=== PATIENT | male | born 1975 | race Caucasian/White ===

== ENCOUNTER 2018-02-02 14:01 | Emergency (ER) | payer SELFPAY ==
[~2018-02-02] VITALS: Ht 160 cm; Wt 78.0 kg
[2018-02-02] MEDS ORDERED: ALBUTEROL (0.083%) 2.5MG/3ML NEB HHN STA (15:09)
[2018-02-02] MEDS ORDERED: IPRATROPIUM BROMIDE (0.02%) 0.5MG/2.5ML NEB HHN STA (15:09)
[2018-02-02 16:51] VITALS: BP 116/74
== END 2018-02-02 16:53 | disposition home or self-care (01) ==
LOC: ER 14:01
DX: Z11.1 Encounter for screening for respiratory tuberculosis (principal); J45.909 Unspecified asthma, uncomplicated; I10 Essential (primary) hypertension; F17.200 Nicotine dependence, unspecified, uncomplicated; Z86.11 Personal history of tuberculosis; Z59.0 Homelessness
CPT/HCPCS: 71045; 99283; J7611